=== PATIENT | male | born 1930 | race Caucasian/White ===

== ENCOUNTER 2018-09-13 08:55 | Day surgery (SDC) | payer MEDICARE, OTHER ==
[2018-09-13 10:06] LABS: HEMATOCRIT 38.6 % (37.9-51.0); HEMOGLOBIN 13.1 g/dL (13.5-17.0); MEAN CORPUSCULAR HEMOGLOBIN 31.9 pg (27.0-33.4); MEAN CORPUSCULAR HGB CONC 33.9 g/dL (32.0-36.0); MEAN CORPUSCULAR VOLUME 94 fl (80-97); PLATELET COUNT 228 10^3/uL (150-450); RED BLOOD COUNT 4.11 10^6/uL (4.35-5.55); RED CELL DISTRIBUTION WIDTH 14.2 % (11.5-14.0); WHITE BLOOD COUNT 6.8 10^3/uL (4.0-10.5)
[2018-09-13 10:13] LABS: INTERNATIONAL RATION (INR) 1.06; PARTIAL THROMBOPLASTIN TIME 27.4 SEC (23.5-35.8); PROTHROMBIN TIME 14.3 SEC (11.4-15.4)
[2018-09-13 10:31] LABS: BLOOD UREA NITROGEN 30 mg/dL (7-20)
[2018-09-13] MEDS ORDERED: MIDAZOLAM 2 MG/2 ML INJ ONE (11:10)
[2018-09-13] MEDS ORDERED: FENTANYL CITRATE INJ/PF 100 MCG/2 ML AMPUL ONE (11:10)
[2018-09-13] MEDS ORDERED: LIDOCAINE 1% INJ-PF (10 MG/ML) 30 ML SDV ONE (11:11)
[2018-09-13 13:15] VITALS: BP 122/68
--- NOTE | 2018-09-13 15:38 | RADIOLOGY REPORT (SQ) ---
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 RADIATION DOSE: 20.2 mGy. LIMITATIONS: None. PROCEDURE: After obtaining informed consent and explaining the risks and benefits of right renal cys t aspiration,the patient agreed to the procedure. Preliminary CT scanning to localize the right renal cyst was performed. A site was marked on the rig ht flank and time out was performed. Procedure was performed using CT fluoroscopy. Total exposure ti me: 2.[address] fluoroscopic images were obtained and saved to PACS. IV pain control was administered and physician direction by the registered nurse using 25 micrograms of fentanyl. Physiologic monitoring was provided before, during, and after sedation. The total pain c ontrol time was 30 minutes. Documentation face to face time, the performing proceduralist, spent monitoring the patient: 25 minut es. After sterile skin prep with ChloraPrep, local lidocaine for skin and deep tissue anesthesia, the rig ht kidney was localized. A coaxial 5 [place] Accustick catheter was used to obtain 500 mL of clear yel low fluid from the right lower pole renal cyst. Fluid was sent for cytology. No immediate postprocedure complications. All CT scanners at this facility use dose modulation, iterative reconstruction, and/or weight based d osing when appropriate to reduce radiation dose to as low as reasonably achievable (ALARA). [facility]: Dose Right [facility]: CareDose [facility]: Dose Right [facility]: Teradose 4D [facility]: ManyWho FINDINGS: Right lower pole renal cortical cyst aspiration under CT fluoro guidance. 500 mL of clear yellow fluid was aspirated from the right lower pole kidney, sent for cytology. IMPRESSION: CT GUIDED RIGHT RENAL CYST ASPIRATION. COMMENT: Patient medication list reviewed:Yes- Quality ID# [id number]:Eligible professional attests to docu menting in the medical record they obtained, updated, or reviewed the patient's current medications.. TECHNICAL DOCUMENTATION: JOB ID: [id number] Quality ID #[id number]: Final reports for procedures using fluoroscopy that document radiation exposure martine clifton, or exposure time and number of fluorographic images (if radiation exposure indices are not avail able) Quality ID # [id number]: Final reports with documentation of one or more dose reduction techniques (e.g., Au tomated exposure control, adjustment of the mA and/or kV according to patient size, use of iterative reconstruction technique) 2010 [employer]- All Rights Reserved Reading location - IP/workstation name: [email or web address]-
--- NOTE | 2018-09-13 15:38 | RADIOLOGY REPORT (SQ) ---
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 RADIATION DOSE: 20.2 mGy. LIMITATIONS: None. PROCEDURE: After obtaining informed consent and explaining the risks and benefits of right renal cys t aspiration,the patient agreed to the procedure. Preliminary CT scanning to localize the right renal cyst was performed. A site was marked on the rig ht flank and time out was performed. Procedure was performed using CT fluoroscopy. Total exposure ti me: 2.[address] fluoroscopic images were obtained and saved to PACS. IV pain control was administered and physician direction by the registered nurse using 25 micrograms of fentanyl. Physiologic monitoring was provided before, during, and after sedation. The total pain c ontrol time was 30 minutes. Documentation face to face time, the performing proceduralist, spent monitoring the patient: 25 minut es. After sterile skin prep with ChloraPrep, local lidocaine for skin and deep tissue anesthesia, the rig ht kidney was localized. A coaxial 5 [place] Accustick catheter was used to obtain 500 mL of clear yel low fluid from the right lower pole renal cyst. Fluid was sent for cytology. No immediate postprocedure complications. All CT scanners at this facility use dose modulation, iterative reconstruction, and/or weight based d osing when appropriate to reduce radiation dose to as low as reasonably achievable (ALARA). [facility]: Dose Right [facility]: CareDose [facility]: Dose Right [facility]: Teradose 4D [facility]: [employer] FINDINGS: Right lower pole renal cortical cyst aspiration under CT fluoro guidance. 500 mL of clear yellow fluid was aspirated from the right lower pole kidney, sent for cytology. IMPRESSION: CT GUIDED RIGHT RENAL CYST ASPIRATION. COMMENT: Patient medication list reviewed:Yes- Quality ID# [id number]:Eligible professional attests to docu menting in the medical record they obtained, updated, or reviewed the patient's current medications.. TECHNICAL DOCUMENTATION: JOB ID: [id number] Quality ID #[id number]: Final reports for procedures using fluoroscopy that document radiation exposure martine clifton, or exposure time and number of fluorographic images (if radiation exposure indices are not avail able) Quality ID # [id number]: Final reports with documentation of one or more dose reduction techniques (e.g., Au tomated exposure control, adjustment of the mA and/or kV according to patient size, use of iterative reconstruction technique) 2010 [employer]- All Rights Reserved Reading location - IP/workstation name: [email or web address]-
== END 2018-09-13 13:05 | disposition home or self-care (01) ==
LOC: RAD 08:55
PROVIDERS: ATTEND Urology
DX: N28.1 Cyst of kidney, acquired (principal); K68.9 Other disorders of retroperitoneum; Z79.01 Long term (current) use of anticoagulants; Z79.899 Other long term (current) drug therapy
CPT/HCPCS: 36415; 84520; 82565; 82947; 85027; 85610; 85730; 88162; 50390; 77012; J2250; J3010; J3490; 88305